=== PATIENT | female | born 1990 | race Two or more races ===

== ENCOUNTER 2023-11-12 12:53 | Inpatient (IN) | payer MEDICAID ==
[~2023-11-12] VITALS: Ht 153 cm; Wt 65.9 kg
[2023-11-12] MEDS ORDERED: BENZ2TAB71 PO (13:07)
[2023-11-12] MEDS ORDERED: SERT-162 PO (13:07)
[2023-11-12] MEDS ORDERED: LORA-1000 PO ×2 (13:07)
[2023-11-12] MEDS ORDERED: RISP2TAB86 PO (13:07)
[2023-11-12] MEDS ORDERED: DOCU-412 PO (13:07)
[2023-11-12] MEDS ORDERED: SODIUM CHLORIDE 0.9% 100 ML ONE (14:54)
[2023-11-12] MEDS ORDERED: IOHEXOL 350 MG/ML 100 ML VIAL ONE (14:54)
[2023-11-12 15:31] LABS: BASOPHILS % (AUTO) 0.4 % (0.0-2.0); EOSINOPHILS % (AUTO) 0.4 % (1.0-6.0); HEMATOCRIT 28.6 % (36-46); LYMPHOCYTES # (AUTO) 2.2 K/uL (1.0-4.8); LYMPHOCYTES % (AUTO) 9.2 % (22.0-44.0); MEAN CORPUSCULAR HEMOGLOBIN 27.1 pg (26.0-34.0); MEAN CORPUSCULAR HGB CONC 31.4 G/dL (31.0-37.0); MEAN CORPUSCULAR VOLUME 87 fL (80-100); MONOCYTES # (AUTO) 1.5 K/uL (0.1-1.0); MONOCYTES % (AUTO) 6.1 % (2.0-9.0); NEUTROPHILS # (AUTO) 20.4 K/uL (1.8-7.7); NEUTROPHILS % (AUTO) 83.9 % (40.0-70.0); PLATELET COUNT (AUTO) 272 K/uL (150-450); RED BLOOD CELL COUNT(AUTO) 3.31 MIL/uL (4.00-5.20); RED CELL DISTRIBUTION WIDTH 14.3 % (11.5-14.5); WHITE BLOOD COUNT (AUTO) 24.3 K/uL (4.5-11.0)
[2023-11-12] MEDS: ACETAMINOPHEN 1000 MG/ISO-OSM 100 ML IV ONE (15:33)
[2023-11-12 15:40] LABS: ANION GAP 8 mmol/L (8-16); CARBON DIOXIDE 30 mmol/L (22-29); CHLORIDE 102 mmol/L (98-107); CREATININE 0.61 mg/dL (0.60-1.30); GLOMERULAR FILTR. RATE CALC > 60 mL/min (>60); GLUCOSE,RANDOM 114 mg/dL (70-110); POTASSIUM 3.3 mmol/L (3.5-5.1); SODIUM SERUM 140 mmol/L (136-145); UREA NITROGEN, BLOOD 9 mg/dL (7-18)
[2023-11-12 15:46] LABS: ALANINE AMINOTRANSFERASE 101 U/L (12-78); ALBUMIN 2.7 g/dL (3.4-5.0); ALKALINE PHOSPHATASE 148 U/L (46-116); ASPARTATE AMINOTRANSFERASE 101 U/L (15-37); BILIRUBIN,TOTAL 0.1 mg/dL (0.1-1.0); TOTAL PROTEIN, SERUM 7.5 g/dL (6.4-8.2)
[2023-11-12 15:48] LABS: LACTIC ACID 1.8 mmol/L (0.4-2.0)
[2023-11-12] MEDS: CLINDAMYCIN 600 MG/D5% WATER 50 ML IV ONE (16:07)
[2023-11-12] MEDS: VANCOMYCIN HCL 1.25 GM in DEXTROSE 5%-WATER 250 ML IV ONE (16:08)
[2023-11-12 17:27] LABS: COVID AG,FIA SOURCE NASAL SWAB
[2023-11-12 18:12] LABS: SARS-COV2 (COVID) ANTIGEN,FIA Negative (Negative)
[2023-11-12] MEDS ORDERED: ACETAMINOPHEN 325 MG TABLET PO PRN (19:30)
[2023-11-12] MEDS ORDERED: 0.9% SODIUM CHLORIDE 10 ML SYRINGE IVP PRN (19:30)
[2023-11-12] MEDS ORDERED: ONDANSETRON HCL 4 MG/2 ML VIAL IVP PRN ×2 (19:30→20:30)
[2023-11-12] MEDS ORDERED: BISACODYL 10 MG RECTAL RECTAL SUPPOSITORY PR PRN (20:30)
[2023-11-12] MEDS ORDERED: ZOLPIDEM TARTRATE 5 MG TABLET PO PRN (20:30)
[2023-11-12] MEDS ORDERED: MORPHINE SULFATE 2 MG/ML SYRINGE IVP PRN (20:30)
[2023-11-12] MEDS ORDERED: HYDROCODONE/ACETAMINOPHEN 5-325 MG TABLET PO PRN (20:30)
[2023-11-12] MEDS ORDERED: IPRATROPIUM BROMIDE 0.5 MG/2.5 ML NEB SOLUTION NEB PRN (20:30)
[2023-11-12] MEDS ORDERED: PIPERACILLIN/TAZO 3.375 GM/D5W 50 ML IV SCH (20:30)
[2023-11-12] MEDS ORDERED: MAGNESIUM HYDROXIDE SUSPENSION 30 ML UDCUP PO PRN (20:30)
[2023-11-12] MEDS ORDERED: DOCUSATE SODIUM 250 MG CAPSULE PO PRN (20:30)
[2023-11-12] MEDS ORDERED: ALBUTEROL SULFATE 2.5 MG/0.5 ML NEB SOLUTION NEB PRN (20:30)
[2023-11-12 21:40] VITALS: BP 103/66; PULSE 85; RESP 20; TEMP 98.6
[2023-11-12] MEDS ORDERED: SODIUM CHLORIDE 0.9% 500 ML IV ONE (21:56)
[2023-11-12] MEDS: LORazepam 1 MG TABLET PO SCH ×2 (21:59)
[2023-11-12] MEDS: PIPERACILLIN/TAZO 3.375 GM/D5W 50 ML IV SCH (21:59)
[2023-11-12] MEDS: RisperiDONE 2 MG TABLET PO SCH (22:00)
[2023-11-12] MEDS: BENZTROPINE MESYLATE 2 MG TABLET PO SCH (22:00)
[2023-11-12] MEDS ORDERED: TRAZ-252 PO (22:36)
[2023-11-12] MEDS: HEPARIN SODIUM,PORCINE 5,000 UNITS/ML VIAL SQ SCH (23:30)
[2023-11-13 03:19] VITALS: BP 114/88; PULSE 75; RESP 18; TEMP 97.5
[2023-11-13] MEDS: VANCOMYCIN HCL 1 GM in DEXTROSE 5%-WATER 250 ML IV SCH (08:17)
[2023-11-13] MEDS: SERTRALINE HCL 100 MG TABLET PO SCH (08:18)
[2023-11-13] MEDS: PANTOPRAZOLE SODIUM 40 MG DR TABLET PO SCH (08:19)
[2023-11-13 08:42] VITALS: BP 127/75; PULSE 88; RESP 18; TEMP 97.3
[2023-11-13 11:26] LABS: BASOPHILS % (AUTO) 0.4 % (0.0-2.0); EOSINOPHILS % (AUTO) 1.2 % (1.0-6.0); HEMOGLOBIN 8.4 g/dL (12.0-16.0); LYMPHOCYTES # (AUTO) 1.4 K/uL (1.0-4.8); LYMPHOCYTES % (AUTO) 8.5 % (22.0-44.0); MEAN CORPUSCULAR HEMOGLOBIN 27.6 pg (26.0-34.0); MEAN CORPUSCULAR HGB CONC 32.2 G/dL (31.0-37.0); MEAN CORPUSCULAR VOLUME 86 fL (80-100); MONOCYTES # (AUTO) 0.9 K/uL (0.1-1.0); MONOCYTES % (AUTO) 5.5 % (2.0-9.0); NEUTROPHILS # (AUTO) 13.8 K/uL (1.8-7.7); NEUTROPHILS % (AUTO) 84.4 % (40.0-70.0); PLATELET COUNT (AUTO) 261 K/uL (150-450); RED BLOOD CELL COUNT(AUTO) 3.04 MIL/uL (4.00-5.20); WHITE BLOOD COUNT (AUTO) 16.3 K/uL (4.5-11.0)
[2023-11-13 12:15] LABS: ALANINE AMINOTRANSFERASE 66 U/L (12-78); ALBUMIN 2.2 g/dL (3.4-5.0); ALKALINE PHOSPHATASE 107 U/L (46-116); ANION GAP 8 mmol/L (8-16); ASPARTATE AMINOTRANSFERASE 45 U/L (15-37); BILIRUBIN,TOTAL 0.2 mg/dL (0.1-1.0); CALCIUM, TOTAL 8.7 mg/dL (8.8-10.5); CARBON DIOXIDE 30 mmol/L (22-29); CHLORIDE 101 mmol/L (98-107); CREATININE 0.54 mg/dL (0.60-1.30); GLOMERULAR FILTR. RATE CALC > 60 mL/min (>60); GLUCOSE,RANDOM 94 mg/dL (70-110); POTASSIUM 3.5 mmol/L (3.5-5.1); SODIUM SERUM 139 mmol/L (136-145); TOTAL PROTEIN, SERUM 6.7 g/dL (6.4-8.2); UREA NITROGEN, BLOOD 4 mg/dL (7-18)
[2023-11-13] MEDS: VANCOMYCIN HCL 750 MG in DEXTROSE 5%-WATER 250 ML IV SCH (15:23)
[2023-11-13] MEDS ORDERED: VANCOMYCIN 1GM/WATER(PEG/NADA) 200 ML IV SCH (16:00)
[2023-11-13] MEDS ORDERED: VANCOMYCIN HCL 1 GM in DEXTROSE 5%-WATER 250 ML IV SCH (16:00)
[2023-11-13] MEDS: ACETAMINOPHEN 325 MG TABLET PO PRN (16:11)
[2023-11-13 16:25] VITALS: BP 129/83; PULSE 112; RESP 18; TEMP 99.6
[2023-11-13 20:55] VITALS: BP 120/78; PULSE 85; RESP 20; TEMP 99.6
[2023-11-14 04:06] VITALS: BP 116/79; PULSE 83; RESP 18; TEMP 98.9
[2023-11-14 07:58] LABS: ANION GAP 7 mmol/L (8-16); CALCIUM, TOTAL 8.4 mg/dL (8.8-10.5); CARBON DIOXIDE 31 mmol/L (22-29); CHLORIDE 103 mmol/L (98-107); CREATININE 0.72 mg/dL (0.60-1.30); GLOMERULAR FILTR. RATE CALC > 60 mL/min (>60); GLUCOSE,RANDOM 92 mg/dL (70-110); POTASSIUM 3.6 mmol/L (3.5-5.1); SODIUM SERUM 141 mmol/L (136-145); UREA NITROGEN, BLOOD 10 mg/dL (7-18); VANCOMYCIN,RANDOM 13.8 mcg/mL (25.0-50.0)
[2023-11-14 09:06] VITALS: BP 125/80; PULSE 86; RESP 20; TEMP 98.7
[2023-11-14] MEDS: ASCORBIC ACID 500 MG TABLET PO SCH (09:53)
[2023-11-14 12:06] LABS: BASOPHILS % (AUTO) 0.7 % (0.0-2.0); EOSINOPHILS % (AUTO) 1.6 % (1.0-6.0); HEMATOCRIT 25.7 % (36-46); HEMOGLOBIN 8.2 g/dL (12.0-16.0); LYMPHOCYTES # (AUTO) 1.5 K/uL (1.0-4.8); MEAN CORPUSCULAR HEMOGLOBIN 27.3 pg (26.0-34.0); MEAN CORPUSCULAR VOLUME 85 fL (80-100); MONOCYTES # (AUTO) 1.1 K/uL (0.1-1.0); MONOCYTES % (AUTO) 9.4 % (2.0-9.0); NEUTROPHILS # (AUTO) 8.9 K/uL (1.8-7.7); NEUTROPHILS % (AUTO) 75.3 % (40.0-70.0); PLATELET COUNT (AUTO) 286 K/uL (150-450); RED BLOOD CELL COUNT(AUTO) 3.01 MIL/uL (4.00-5.20); RED CELL DISTRIBUTION WIDTH 14.2 % (11.5-14.5); WHITE BLOOD COUNT (AUTO) 11.8 K/uL (4.5-11.0)
[2023-11-14 14:12] VITALS: O2SAT 99
[2023-11-14 18:08] VITALS: BP 143/80; PULSE 90; RESP 20; TEMP 98.8
[2023-11-14 20:44] VITALS: BP 104/60; PULSE 99; RESP 18; TEMP 98.3
[2023-11-15 04:49] VITALS: BP 138/75; PULSE 85; RESP 20; TEMP 98.6
[2023-11-15 06:51] LABS: BASOPHILS % (AUTO) 0.6 % (0.0-2.0); EOSINOPHILS % (AUTO) 1.6 % (1.0-6.0); HEMATOCRIT 27.7 % (36-46); HEMOGLOBIN 9.1 g/dL (12.0-16.0); LYMPHOCYTES # (AUTO) 1.5 K/uL (1.0-4.8); LYMPHOCYTES % (AUTO) 15.2 % (22.0-44.0); MEAN CORPUSCULAR VOLUME 85 fL (80-100); MONOCYTES % (AUTO) 10.2 % (2.0-9.0); NEUTROPHILS % (AUTO) 72.4 % (40.0-70.0); PLATELET COUNT (AUTO) 310 K/uL (150-450); RED BLOOD CELL COUNT(AUTO) 3.26 MIL/uL (4.00-5.20); RED CELL DISTRIBUTION WIDTH 14.4 % (11.5-14.5); WHITE BLOOD COUNT (AUTO) 9.7 K/uL (4.5-11.0)
[2023-11-15 07:14] LABS: ANION GAP 7 mmol/L (8-16); CALCIUM, TOTAL 8.8 mg/dL (8.8-10.5); CARBON DIOXIDE 31 mmol/L (22-29); CHLORIDE 103 mmol/L (98-107); CREATININE 0.73 mg/dL (0.60-1.30); GLOMERULAR FILTR. RATE CALC > 60 mL/min (>60); GLUCOSE,RANDOM 86 mg/dL (70-110); POTASSIUM 3.6 mmol/L (3.5-5.1); SODIUM SERUM 141 mmol/L (136-145); UREA NITROGEN, BLOOD 7 mg/dL (7-18)
[2023-11-15 10:03] VITALS: O2SAT 100
[2023-11-15] MEDS ORDERED: SODIUM CHLORIDE 0.9% 250 ML IV ONE (15:26)
[2023-11-15] MEDS ORDERED: AMOX TR/POT CLAV 875 MG/125 MG TABLET PO ONE (17:15)
[2023-11-15] MEDS ORDERED: ASCO500 PO (17:15)
[2023-11-15] MEDS ORDERED: AMOX1TAB16 PO (17:15)
[2023-11-15] MEDS: AMOX TR/POT CLAV 875 MG/125 MG TABLET PO ONE (18:13)
[2023-11-15 22:33] VITALS: O2SAT 98
[2023-11-16] MEDS: AMOX TR/POT CLAV 875 MG/125 MG TABLET PO SCH (08:23)
== END 2023-11-16 12:20 | DRG 383 ==
LOC: EMS 12:54 → AHU 16:58 → 6N 19:49 → 6S 21:40
PROVIDERS: ADMIT Hospitalist; ATTEND Hospitalist
DX: L02.411 Cutaneous abscess of right axilla (principal); R65.10 Systemic inflammatory response syndrome (SIRS) of non-infectious origin without acute organ dysfunction; L03.111 Cellulitis of right axilla; D64.9 Anemia, unspecified; Z20.822 Contact with and (suspected) exposure to COVID-19; E87.6 Hypokalemia; F20.9 Schizophrenia, unspecified; F79 Unspecified intellectual disabilities; K59.09 Other constipation
CPT/HCPCS: 73201; 80048; 80053; 80202; 83605; 84703; 85025; 87040; 87070; 87186; 87205; 99285; J0131; J1644; J2543; J3370; J3490; J7040; J7050; J7060; Q9967